=== PATIENT | male | born 1995 | race Caucasian/White ===

== ENCOUNTER → 2017-05-08 | Outpatient (CLI) | payer OTHER ==
--- NOTE | 2017-05-08 11:18 | RADIOLOGY REPORT (SQ) ---
EXAM DESCRIPTION: U/S RETROPERITON (RENAL/AORTA) COMPLETED DATE/TIME: 05/08/2017 10:44 am REASON FOR STUDY: I70.1 ATHEROSCLEROSIS OF RENAL ARTERY I70.1 ATHEROSCLEROSIS OF RENAL ARTERY COMPARISON: None. TECHNIQUE: Dynamic and static grayscale images acquired of the kidneys and bladder and recorded on P ACS. Additional selected color Doppler and spectral images recorded. LIMITATIONS: None. FINDINGS: RIGHT KIDNEY: 14.4 cm in length. Increased cortical echogenicity. No solid or suspici ous masses. Multiple renal cysts are identified with the largest measuring 2.8 x 2.3 x 3.1 cm in ankit meters. No hydronephrosis. No calcifications. LEFT KIDNEY: 13.4 cm in length. Increased cortical echogenicity. No solid or suspicious masses. Multiple renal cysts are identified with the largest measuring 2.5 x 2.2 x 2.0 cm in diameters No hy dronephrosis. No calcifications. BLADDER: No masses. OTHER: No other significant finding. IMPRESSION: There is increased cortical echogenicity suggesting intrinsic renal disease. Multiple b ilateral varying size renal cysts are identified which may be related to polycystic renal disease. B y clinical history the patient's father has polycystic renal disease. Clinical correlation is recomm ended. Other findings as noted above TECHNICAL DOCUMENTATION: JOB ID: [id number] [facility]- All Rights Reserved Reading location - IP/workstation name: [email or web address]
--- NOTE | 2017-05-08 11:20 | RADIOLOGY REPORT (SQ) ---
EXAM DESCRIPTION: U/S LTD DUPLEX ART/FRANCESCO FLOW COMPLETED DATE/TIME: 05/08/2017 10:44 am REASON FOR STUDY: I70.1 I70.1 ATHEROSCLEROSIS OF RENAL ARTERY COMPARISON: None. TECHNIQUE: Realtime and static grayscale images acquired. Selected color Doppler, velocities and spe ctral images recorded. LIMITATIONS: None. FINDINGS: RIGHT KIDNEY: RENAL ARTERY VELOCITIES: 87.5 cm/sec. Segmental artery velocity 59.6 cm/sec. RENAL VEIN: Color doppler flow present, patent. VELOCITY RATIO: 0.58. Normal waveforms. KIDNEY: See results under separate renal ultrasound LEFT KIDNEY: RENAL ARTERY VELOCITIES: 120.9 cm/sec. Segmental artery velocity 66.8 cm/sec. RENAL VEIN: Color doppler flow present, patent. VELOCITY RATIO: 0.80. Normal waveforms. KIDNEY: See results under separate renal ultrasound BLADDER: Normal. OTHER: No other significant finding. IMPRESSION: NO DOPPLER EVIDENCE OF HEMODYNAMICALLY SIGNIFICANT RENAL ARTERY STENOSIS. COMMENT: NORMAL RENAL ARTERY/AORTA VELOCITY RATIO IS LESS THAN OR EQUAL TO 3.5. TECHNICAL DOCUMENTATION: JOB ID: [id number] [employer]- All Rights Reserved Reading location - IP/workstation name: [email or web address]
== END ==
LOC: RAD 09:48
PROVIDERS: ATTEND Family Medicine
DX: I70.1 Atherosclerosis of renal artery (principal)
CPT/HCPCS: 76770; 93976